=== PATIENT | female | born 1945 | race Caucasian/White ===

== ENCOUNTER → 2017-04-16 | Outpatient (CLI) | payer MEDICARE ==
[~2017-04-16] MED LIST: LEVO100T60 PO; SPIRCAP INH
--- NOTE | 2017-04-17 10:19 | RSPPFT ---
DATE OF PROCEDURE: 04/16/17 COMMENTS: Spirometry shows FVC of 2.4 at 81% of predicted, FEV1 of 1.1 at 51%, FEV1/FVC ratio is decreased. Flow is decreased at FEF 25, FEF 50, FEF 75 and FEF 25-75. There is a good response after bronchodilator treatment. Lung volumes show residual volume is increased. TLC is normal. Diffusion capacity is decreased. Flow volume loop indicates an obstructive pattern. 6-minute walk test shows no significant de-saturation. IMPRESSION: 1. Moderately severe obstructive lung disease. 2. Good response after bronchodilator treatment. 3. Increased lung volumes. 4. Diffusion capacity is decreased. 5. 6-minute walk test shows no significant de-saturation.
== END ==
LOC: PHRSP 07:33
PROVIDERS: ATTEND Specialist
DX: J44.9 Chronic obstructive pulmonary disease, unspecified (principal)
CPT/HCPCS: 94060; 94618; 94726; 94729